=== PATIENT | male | born 1950 | race African-American/Black ===

== ENCOUNTER 2023-05-08 03:27 | Emergency (ER) | payer MEDICARE ==
[~2023-05-08] VITALS: Ht 170.2 cm; Wt 80.0 kg
[2023-05-08 03:30] VITALS: O2SAT 99
[2023-05-08] MEDS ORDERED: ACETAMINOPHEN 325MG TABLET PO STA (03:48)
[2023-05-08] MEDS ORDERED: ONDANSETRON HCL 4MG/2ML INJ IV STA (03:48)
[2023-05-08 04:48] LABS: EOSINOPHILS % 1.1 % (0.0-5.0); HEMATOCRIT. 31.4 % (42.0-52.0); HEMOGLOBIN. 10.1 g/dL (14.0-18.0); LYMPHOCYTES % 16.1 % (20.0-50.0); MEAN CORPUSCULAR HEMOGLOBIN 27.6 pg (28.0-32.0); MEAN CORPUSCULAR HGB CONC 32.2 g/dL (31.0-37.0); MEAN CORPUSCULAR VOLUME 85.8 fL (80.0-94.0); MEAN PLATELET VOLUME 6.8 fl (7.4-10.4); MONOCYTES % 14.5 % (2.0-8.0); NEUTROPHILS % 67.3 % (40.0-76.0); PLATELET 413 x1000/uL (130-400); RED BLOOD CELL COUNT 3.67 mill/uL (4.7-6.1); RED CELL DISTRIBUTION WIDTH 14.8 % (11.6-14.6); WHITE BLOOD COUNT 6.9 x1000/uL (4.5-11.0)
[2023-05-08 04:53] LABS: ALANINE AMINOTRANSFERASE < 7 IU/L (10-49); ASPARTATE AMINOTRANSFERASE 16 IU/L (<34); BILIRUBIN TOTAL 0.5 mg/dL (0.1-1.0); CARBON DIOXIDE 24 mEq/L (21-32); CHLORIDE 98 mEq/L (98-107); CREATININE 0.7 mg/dL (0.6-1.3); GLUCOSE 113 mg/dL (70-105); POTASSIUM 3.2 mEq/L (3.5-5.1); PROTEIN TOTAL 8.6 g/dL (6.0-8.3); PROTHROMBIN TIME 10.9 sec (9.6-11.0); SODIUM 131 mEq/L (136-145); UREA NITROGEN BLOOD 7 mg/dL (9-23)
[2023-05-08 05:23] LABS: ETHANOL BLOOD < 10 mg/dL (<10)
[2023-05-08] MEDS ORDERED: ACETAMINOPHEN 325MG TABLET PO NR (09:45)
[2023-05-08] MEDS ORDERED: ONDANSETRON HCL 4MG/2ML INJ IV NR (09:45)
[2023-05-08 09:49] LABS: CLARITY URINE CLOUDY (CLEAR); COLOR URINE YELLOW (YELLOW); GLUCOSE URINE NEGATIVE (NEGATIVE); KETONES URINE NEGATIVE (NEGATIVE); LEUKOCYTE ESTERASE URINE NEGATIVE (NEGATIVE); NITRITE URINE NEGATIVE (NEGATIVE); OCCULT BLOOD URINE NEGATIVE (NEGATIVE); PROTEIN URINE NEGATIVE (NEGATIVE); SPECIFIC GRAVITY URINE 1.017 (1.005-1.030); UROBILINOGEN URINE 0.2 E.U./dL (0.2-1.0)
[2023-05-08 10:07] LABS: BACTERIA URINE RARE; RBC URINE 0-2 /hpf (0-2); SQUAMOUS EPITHELIAL CELL URINE NONE SEEN /lpf (RARE/1+); WBC URINE 0-2 /hpf (0-2); YEAST URINE NONE SEEN
[2023-05-08] MEDS ORDERED: NAPR-681 MT (12:16)
[2023-05-08] MEDS ORDERED: CEFP200T13 MT (12:16)
[2023-05-08 12:41] VITALS: BP 158/85; PULSE 94; RESP 14; TEMP 97.8
== END 2023-05-08 12:43 | disposition home or self-care (01) ==
LOC: ER 05:01
DX: R33.9 Retention of urine, unspecified (principal)
CPT/HCPCS: 80053; 81003; 80320; 83605; 83690; 85025; 85610; 36415; 51702; 96374; 99284; J2405; A4315; G0480

== ENCOUNTER 2023-05-27 10:35 | Emergency (ER) | payer MEDICARE ==
[~2023-05-27] VITALS: Ht 172.7 cm; Wt 69.0 kg
[~2023-05-27 10:35] MED LIST: CEFP200T13 MT; NAPR-681 MT
[2023-05-27 10:50] VITALS: BP 154/79; PULSE 86; RESP 16; TEMP 98.5; O2SAT 98
== END 2023-05-27 14:31 | disposition left against medical advice (07) ==
LOC: ER 10:45
DX: R33.9 Retention of urine, unspecified (principal); Z46.6 Encounter for fitting and adjustment of urinary device
CPT/HCPCS: 99281